=== PATIENT | male | born 1980 | race American Indian/Alaskan Native ===

== ENCOUNTER 2021-12-27 01:12 | Emergency (ER) | payer OTHER ==
[2021-12-27] MEDS ORDERED: SODIUM CHLORIDE 0.9% 1000 ML 1,000 ML IV ONE (03:52)
[2021-12-27] MEDS ORDERED: ONDANSETRON 4 MG/2 ML INJ IV ONE ×2 (03:52→06:30)
[2021-12-27] MEDS ORDERED: MORPHINE 4 MG/1 ML INJ IV ONE ×2 (03:52→06:30)
--- NOTE | 2021-12-27 03:59 | Emergency Department Report ---
<TYLERAMERICARoseIVETT - Last Filed: 12/27/21 05:54> ED Abdominal Pain HPI - General Chief Complaint: Abdominal Pain Stated Complaint: ABD PAIN Source: patient Mode of arrival: Ambulatory Limitations: No Limitations - History of Present Illness Initial Comments: Patient is a 41-year-old -[place] male with no past medical history presents to the ED with complaint of acute onset persistent constant left lower quadrant pain, nausea and vomiting and hematuria for the last 6 hours. Patient states that the pain has been constant and persistent and does not get worse with any movement. Patient denies chest pain or shortness of breath, traumatic injury, fall, low back pain, dysuria, urinary frequency and urgency, testicular pain, penile discharge, fever and chills. MD Complaint: abdominal pain (Left lower quadrant pain), other (Hematuria; nausea and vomiting) -: Sudden, hour(s) (6) Location: LL Radiation: none Migration to: LLQ Severity scale (0 -10): 7 Quality: cramping, aching, sharp Consistency: constant Improves With: nothing Worsens With: nothing Associated Symptoms: denies other symptoms, nausea, vomiting, hematuria - Related Data Previous Rx's Medication Instructions Recorded Last Taken Type Ketorolac [Toradol] 10 mg PO Q6H PRN #20 12/27/21 Unknown Rx Nitrofurantoin [place]/M-Cryst 100 mg PO Q12HR 10 Days #20 capsule 12/27/21 Unknown Rx [Macrobid CAP] Oxycodone HCl/Acetaminophen 1 each PO Q8H PRN #12 tab 12/27/21 Unknown Rx [Oxycodone-Acetaminophn 7.5-325] Tamsulosin [Flomax] 0.4 mg PO QDAY 5 Days #5 cap 12/27/21 Unknown Rx Allergies Allergy/AdvReac Type Severity Reaction Status Date / Time No Known Allergies Allergy Verified 12/27/21 03:34 ED Review of Systems Constitutional: denies: chills, fever Eyes: denies: eye pain, eye discharge, vision change ENT: denies: ear pain, throat pain Respiratory: denies: cough, shortness of breath, wheezing Cardiovascular: denies: chest pain, palpitations Endocrine: no symptoms reported Gastrointestinal: abdominal pain (Left lower quadrant pain), nausea, vomiting. denies: diarrhea Genitourinary: hematuria. denies: urgency, dysuria, frequency, testicular pain, testicular mass Musculoskeletal: denies: back pain, joint swelling, arthralgia Skin: denies: rash, lesions Neurological: denies: headache, weakness, paresthesias Psychiatric: denies: anxiety, depression Hematological/Lymphatic: denies: easy bleeding, easy bruising ED Past Medical Hx - Past Medical History Previous Medical History?: No - Surgical History Past Surgical History?: Yes Additional Surgical History: Right Testicle removed - Medications Home Medications: Home Medications Medication Instructions Recorded Confirmed Last Taken Type Ketorolac [Toradol] 10 mg PO Q6H PRN #20 12/27/21 Unknown Rx Nitrofurantoin [place]/M-Cryst 100 mg PO Q12HR 10 Days #20 capsule 12/27/21 Unknown Rx [Macrobid CAP] Oxycodone HCl/Acetaminophen 1 each PO Q8H PRN #12 tab 12/27/21 Unknown Rx [Oxycodone-Acetaminophn 7.5-325] Tamsulosin [Flomax] 0.4 mg PO QDAY 5 Days #5 cap 12/27/21 Unknown Rx ED Physical Exam - General Limitations: No Limitations General appearance: alert, in no apparent distress - Head Head exam: Present: atraumatic, normocephalic, normal inspection - Eye Eye exam: Present: normal appearance, PERRL, EOMI Pupils: Present: normal accommodation - ENT ENT exam: Present: normal exam, normal orophraynx, mucous membranes moist, TM's normal bilaterally, normal external ear exam - Neck Neck exam: Present: normal inspection, full ROM - Respiratory Respiratory exam: Present: normal lung sounds bilaterally. Absent: respiratory distress, wheezes, rales, rhonchi, chest wall tenderness, accessory muscle use, decreased breath sounds, prolonged expiratory - Cardiovascular Cardiovascular Exam: Present: regular rate, normal rhythm, normal heart sounds. Absent: systolic murmur, diastolic murmur, rubs, gallop - GI/Abdominal GI/Abdominal exam: Present: soft, tenderness (Palpable left lower quadrant tenderness), normal bowel sounds. Absent: guarding, rebound, hyperactive bowel sounds, hypoactive bowel sounds, mass - Extremities Exam Extremities exam: Present: normal inspection, full ROM, normal capillary refill - Back Exam Back exam: Present: normal inspection, full ROM. Absent: tenderness, CVA tenderness (R), muscle spasm, paraspinal tenderness, vertebral tenderness - Neurological Exam Neurological exam: Present: alert, oriented X3, CN II-XII intact, normal gait, reflexes normal - Psychiatric Psychiatric exam: Present: normal affect, normal mood - Skin Skin exam: Present: warm, dry, intact, normal color. Absent: rash ED Medical Decision Making - Lab Data Result diagrams: 12/27/21 04:00 12/27/21 04:00 - Medical Decision Making This is a 41-year-old -[place] male with no past medical history presents to the ED with complaint of acute onset persistent constant left lower quadrant pain, nausea and vomiting and hematuria for the last 6 hours. Patient states that the pain has been constant and persistent and does not get worse with any movement. In the ED, patient is alert and oriented x3 and is not in any distress. Patient however appears to be in significant pain. Patient was treated for pain in the ED and also given antiemetics and normal saline 1 L IV bolus x1. Lab test results unremarkable except for urinalysis that is pending at the time of shift change. Abdomen pelvis CT scan with contrast is also pending at this time of shift change. Patient care was transferred to Ms. Karina Morse PA-C at shift change she shall review all lab test results, imaging reports and disposition the patient accordingly. - Differential Diagnosis Kidney stone; colitis; diverticulitis; UTI; constipation; muscle spasm ED Disposition Clinical Impression: Kidney calculi, UTI (urinary tract infection) Disposition: 01 HOME / SELF CARE / HOMELESS Is pt being admited?: No Does the pt Need Aspirin: No Condition: Stable Instructions: Nausea and Vomiting, Adult, [id number], Abdominal Pain, Adult, [id number], Hematuria, Adult Additional Instructions: CT scan shows that you have a kidney stone and your urine shows that you have a urinalysis. Prescriptions: Tamsulosin [Flomax] 0.4 mg PO QDAY 5 Days #5 cap Nitrofurantoin [place]/M-Cryst [Macrobid CAP] 100 mg PO Q12HR 10 Days #20 capsule Oxycodone HCl/Acetaminophen [Oxycodone-Acetaminophn 7.5-325] 1 each PO Q8H PRN #12 tab PRN Reason: Pain , Severe (7-10) Ketorolac [Toradol] 10 mg PO Q6H PRN #20 PRN Reason: Pain Referrals: ABRAM WAGONER MD [Primary Care Provider] - 3-5 Days GISEL SALAZAR MD [Staff Physician] - 3-5 Days Forms: Work/School Release Form(ED) <TENNILLE ASHLEY - Last Filed: 12/27/21 08:18> ED Review of Systems ROS: Stated complaint: ABD PAIN Other details as noted in HPI ED Course Vital Signs 12/27/21 12/27/21 03:33 06:34 Temperature 98.2 F Pulse Rate 56 L Respiratory 17 16 Rate Blood Pressure 176/95 [Right] O2 Sat by Pulse 99 Oximetry ED Medical Decision Making - Lab Data Result diagrams: 12/27/21 04:00 12/27/21 04:00 - Radiology Data Radiology results: [place] [address] Cat Scan Report Signed Patient: BRI SINGH MR#: [id number] : 1980 Acct:[id number] Age/Sex: 41 / M ADM Date: 12/27/21 Loc: ED Attending Dr: Ordering Physician: OBEY LOPEZ Date of Service: 12/27/21 Procedure(s): CT abdomen pelvis w con Accession Number(s): [id number] cc: OBEY LOPEZ CT abdomen pelvis w con INDICATION / CLINICAL INFORMATION: LLQ pain. TECHNIQUE: Axial CT images were obtained through the abdomen and pelvis after 100 cc of Omnipaque [address] scans at this location are performed using CT dose reduction for ALARA by means of automated exposure control. COMPARISON: None available. FINDINGS: LOWER CHEST: No significant abnormality LIVER: No significant abnormality GALLBLADDER/BILIARY TREE: No significant abnormality PANCREAS: No significant abnormality SPLEEN: No significant abnormality ADRENALS: No significant abnormality KIDNEYS / URETER: 3 mm calcification within the distal left ureter just proximal to the UVJ. There is associated mild left hydronephrosis and asymmetric periureteral stranding. There is also mild delayed enhancement of the left kidney. Right kidney and ureter are unremarkable. URINARY BLADDER: No significant abnormality REPRODUCTIVE ORGANS: No significant abnormality STOMACH / BOWEL: Small bowel is normal in caliber. The colon is unremarkable. No evidence of appendicitis. LYMPH NODES: No significant adenopathy. VASCULATURE: No significant abnormality. OTHER: No free air, free fluid, or focal fluid collection is identified. SKELETAL SYSTEM: No acute osseous findings. IMPRESSION: 1. 3 mm distal left ureteral stone with mild obstructive uropathy. 2. No other acute abnormality of the abdomen or pelvis. Signer Name: Jorge Dickinson MD Signed: 12/27/2021 5:51 AM Workstation Name: [id number] Transcribed By: JS Dictated By: JORGE DICKINSON MD Electronically Authenticated By: JORGE DICKINSON MD Signed Date/Time: 12/27/21550 DD/ 5 TD/TT: - Medical Decision Making Patient was transferred to [place] by Ivett Delgado PA-C. CT scan shows he has a 3 mm nonobstructing kidney stone. Urinalysis shows greater than 123 WBCs, moderate amount of blood. Patient be discharged on Flomax, Percocet, Toradol and Macrobid. Instructed patient to increase his fluids. Follow-up with a urolo gist. Critical care attestation.: If time is entered above; I have spent that time in minutes in the direct care of this critically ill patient, excluding procedure time. ED Disposition Time of Disposition: 08:12
[2021-12-27 04:18] LABS: Basophils % (Auto) 0.4 % (0.0-1.8); Hematocrit 44.1 % (35.5-45.6); Hemoglobin 15.5 gm/dl (11.8-15.2); Lymphocytes # (Auto) 1.1 K/mm3 (1.2-5.4); Lymphocytes % (Auto) 11.4 % (13.4-35.0); Mean Corpuscular HGB Conc 35 % (32-34); Mean Corpuscular Volume 85 fl (84-94); Monocytes # (Auto) 0.6 K/mm3 (0.0-0.8); Monocytes % (Auto) 5.7 % (0.0-7.3); Platelet Count 260 K/mm3 (140-440); Red Blood Count 5.16 M/mm3 (3.65-5.03); Red Cell Distribution Width 14.2 % (13.2-15.2)
[2021-12-27 04:36] LABS: Alanine Aminotransferase 13 units/L (7-56); Albumin 4.7 g/dL (3.9-5); BUN/Creatinine Ratio 15; Blood Urea Nitrogen 15 mg/dL (9-20); Calcium 9.6 mg/dL (8.4-10.2); Hemolysis Index 11
--- NOTE | 2021-12-27 05:55 | Cat Scan Report ---
CT abdomen pelvis w con INDICATION / CLINICAL INFORMATION: LLQ pain. TECHNIQUE: Axial CT images were obtained through the abdomen and pelvis after 100 cc of Omnipaque [address] scans at this location are performed using CT dose reduction for ALARA by means of automated exposure control. COMPARISON: None available. FINDINGS: LOWER CHEST: No significant abnormality LIVER: No significant abnormality GALLBLADDER/BILIARY TREE: No significant abnormality PANCREAS: No significant abnormality SPLEEN: No significant abnormality ADRENALS: No significant abnormality KIDNEYS / URETER: 3 mm calcification within the distal left ureter just proximal to the UVJ. There is associated mild left hydronephrosis and asymmetric periureteral stranding. There is also mild delaye d enhancement of the left kidney. Right kidney and ureter are unremarkable. URINARY BLADDER: No significant abnormality REPRODUCTIVE ORGANS: No significant abnormality STOMACH / BOWEL: Small bowel is normal in caliber. The colon is unremarkable. No evidence of appendic itis. LYMPH NODES: No significant adenopathy. VASCULATURE: No significant abnormality. OTHER: No free air, free fluid, or focal fluid collection is identified. SKELETAL SYSTEM: No acute osseous findings. IMPRESSION: 1. 3 mm distal left ureteral stone with mild obstructive uropathy. 2. No other acute abnormality of the abdomen or pelvis. Signer Name: Harshil Dickinson MD Signed: 12/27/2021 5:51 AM Workstation Name: [id number]
[2021-12-27 05:57] LABS: Color,Urine Red (Yellow); RBC,Urine > 182.0 /HPF (0.0-6.0)
[2021-12-27 06:13] LABS: Bilirubin,Urine Negative (Negative); Blood,Urine Moderate (Negative)
[2021-12-27 06:14] LABS: Urobilinogen,Urine < 2.0 mg/dL (<2.0)
[2021-12-27 08:28] VITALS: BP 135/88
== END 2021-12-27 08:28 | disposition home or self-care (01) ==
LOC: ED 01:12
DX: N20.0 Calculus of kidney (principal); N39.0 Urinary tract infection, site not specified; R31.9 Hematuria, unspecified; R11.2 Nausea with vomiting, unspecified; Z79.899 Other long term (current) drug therapy
CPT/HCPCS: 36415; 74177; 80053; 81001; 83690; 85025; 96361; 96374; 96375; 99284; J2270; J2405; J7030; Q9967; Q0162